=== PATIENT | male | born 1965 | race Asian ===

== ENCOUNTER 2017-06-07 08:30 | Day surgery (SDC) | payer BC ==
[~2017-06-07] VITALS: Ht 170.2 cm; Wt 61.4 kg
[2017-06-07 09:18] VITALS: BP 125/73; PULSE 72; TEMP 98.9
[2017-06-07] MEDS ORDERED: TEMOVATE0.05% TOP (09:23)
[2017-06-07 11:06] VITALS: BP 110/76; PULSE 89; TEMP 97.6
[2017-06-07 11:20] VITALS: BP 111/74; PULSE 93
[2017-06-07 11:35] VITALS: BP 114/74; PULSE 93
== END 2017-06-07 12:00 | disposition home or self-care (01) ==
LOC: SDCO 08:30
DX: Z12.11 Encounter for screening for malignant neoplasm of colon (principal); E78.00 Pure hypercholesterolemia, unspecified
CPT/HCPCS: OP; J2250; J3010; J7030